=== PATIENT | female | born 1995 | race Caucasian/White ===

== ENCOUNTER 2018-05-11 06:34 | Inpatient (IN) ==
[2018-05-11] MEDS ORDERED: ONDANSETRON 4 MG/2 ML VIAL IV PRN (07:13)
[2018-05-11] MEDS ORDERED: MEPERIDINE 50 MG/1 ML VIAL IM PRN (07:13)
[2018-05-11] MEDS ORDERED: LACTATED RINGERS 500 ML IV ONE (07:14)
[2018-05-11] MEDS ORDERED: PROMETHAZINE 25 MG/1 ML VIAL IM ONE (07:14)
[2018-05-11] MEDS ORDERED: ONDANSETRON 4 MG/2 ML VIAL IV ONE (07:14)
[2018-05-11] MEDS ORDERED: ePHEDrine 50 MG/ML AMP IV PRN (07:14)
[2018-05-11] MEDS ORDERED: diphenhydrAMINE 50 MG/1 ML VIAL IV PRN ×2 (07:14)
[2018-05-11] MEDS ORDERED: LACTATED RINGERS 250 ML IV PRN (07:14)
[2018-05-11] MEDS ORDERED: LACTATED RINGERS 1,000 ML IV ONE (07:14)
[2018-05-11] MEDS ORDERED: FAMOTIDINE 20 MG/2 ML VIAL IV ONE (07:14)
[2018-05-11] MEDS ORDERED: CITRIC ACID/SODIUM CITRATE 30 ML UDCUP PO ONE (07:14)
[2018-05-11] MEDS ORDERED: hydrOXYzine HCL 25 MG/1 ML VIAL IM PRN (07:14)
[2018-05-11 07:50] LABS: Basophils % 0.2 % (0.0-0.8); Eosinophils # 0.1 10*3/uL (0.0-0.87); Eosinophils % 0.5 % (0.00-10.9); Hematocrit 29.9 VOL% (35.7-47.0); Hemoglobin 10.1 GM/DL (12.0-16.0); Immature Granulocytes % 0.8 %; Immature Granulocytes Absolute 0.11 #; Lymphocytes # 2.2 10*3/uL (1.4-4.0); Lymphocytes % 14.8 % (21.3-54.2); Mean Corpuscular HGB Conc 33.8 GM/DL (32-36); Mean Corpuscular Hemoglobin 29 PG (27-34); Mean Corpuscular Volume 85.2 FL (87-102); Mean Platelet Volume 10.4 FL (9.6-12.0); Monocytes # 1.3 10*3/uL (0.11-0.8); Monocytes % 8.6 % (1.7-12.7); Neutrophils # 10.9 10*3/uL (1.4-7.4); Neutrophils % 75.1 % (38.7-73.9); Platelet Count 294 T/CUMM (130-400); Red Blood Count 3.51 MC/CUMM (3.8-5.5); Red Cell Distribution Width 13.1 % (9.3-17.3); White Blood Count 14.6 T/CUMM (4-12)
[2018-05-11] MEDS: LACTATED RINGERS 1,000 ML IV SCH ×4 (07:56→21:43)
[2018-05-11 08:29] LABS: Alanine Aminotransferase 12 U/L (13-56); Albumin 2.6 G/DL (3.4-5.0); Alkaline Phosphatase 162 U/L (45-117); Aspartate Amino Transferase 10 U/L (0-37); Bilirubin,Total < 0.39 MG/DL (0.2-1.0); Blood Urea Nitrogen 7 MG/DL (7-18); Calcium 8.4 MG/DL (8.5-10.1); Glucose 82 MG/DL (74-106); Osmolality,Calculated 271.7 MOS/KG (273-304); Potassium 3.8 MMOL/L (3.5-5.1); Sodium 138 MMOL/L (136-145); Total Protein 6.5 G/DL (6.4-8.3)
[2018-05-11] MEDS: fentaNYL 2 MCG/ROPIV 0.2% EPID 150 ML EPIDURAL SCH ×2 (08:34→12:40)
[2018-05-11 09:08] LABS: Apearance,Urine CLEAR (Clear); Bilirubin,Urine Negative (Negative); Blood, Urine Small mg/dL (Negative); Glucose,Urine (UA) Negative (Negative); Ketones,Urine Negative (Negative); Mucus,Urine Moderate /LPF (Occasional); Nitrite,Urine Negative (Negative); Protein,Urine 30 MG/DL; RBC,Urine 6 /HPF (0-4); Squamous Epithelial Cell,Urine Occasional /HPF (0-10); Urine Color Yellow (Yellow); Urine Specific Gravity 1.018 (1.001-1.035); Urine Urobilinogen < 2.0 EU/DL (0.2-1.0); WBC,Urine 1 /HPF (0-6)
[2018-05-11] MEDS ORDERED: OXYTOCIN/LR 20 UNIT/1,000 ML BAG IV SCH (09:30)
[2018-05-11] MEDS ORDERED: METHYLERGONOVINE 0.2 MG/1 ML AMP ONE (11:59)
[2018-05-11] MEDS ORDERED: miSOPROStol 200 MCG TABLET ONE (11:59)
[2018-05-11] MEDS ORDERED: LIDOCAINE 1% 50 ML VIAL ONE (11:59)
[2018-05-11 14:18] LABS: Cord Venous Blood HCO3 17.5 MMOL/L; Cord Venous Blood PCO2 50.5 MMHG; Cord Venous Blood PO2 22.5
[2018-05-11] MEDS ORDERED: ACETAMINOPHEN 325 MG TABLET PO PRN (17:12)
[2018-05-11] MEDS ORDERED: oxyCODONE/ACETAMINOPHEN 5-325 MG TABLET PO PRN (17:12)
[2018-05-11] MEDS ORDERED: DIPH/TET/ACEL PERT BOOSTER VACCINE 0.5 ML VIAL IM ONE (17:12)
[2018-05-11] MEDS ORDERED: RHO(D) IMMUNE GLOBULIN 300 MCG SYRINGE IM ONE (17:12)
[2018-05-11] MEDS ORDERED: WITCH HAZEL PADS 100/JAR TOP PRN (17:12)
[2018-05-11] MEDS ORDERED: LANOLIN 50% CREAM 0.3 OZ TUBE TOP PRN (17:12)
[2018-05-11] MEDS ORDERED: BENZOCAINE 20%/MENTHOL 0.5% SPRAY 56 GM CAN TOP PRN (17:12)
[2018-05-11] MEDS ORDERED: MEASLES/MUMPS/RUBELLA VACCINE 0.5 ML VIAL SUBCUT ONE (17:12)
[2018-05-11] MEDS ORDERED: HYDROCORTISONE 2.5% RECTAL CREAM 30 GM TUBE TOP PRN (17:12)
[2018-05-11] MEDS ORDERED: BISACODYL 10 MG SUPP RECTAL PRN (17:12)
[2018-05-11] MEDS ORDERED: ACETAMINOPHEN/CODEINE 300-30 MG TABLET PO PRN (17:12)
[2018-05-11] MEDS: IBUPROFEN 800 MG TABLET PO PRN ×2 (17:41→23:24)
[2018-05-11] MEDS: oxyCODONE/ACETAMINOPHEN 5-325 MG TABLET PO PRN ×2 (17:41→23:24)
[2018-05-11] MEDS: DOCUSATE SODIUM 100 MG CAPSULE PO SCH (20:41)
[2018-05-12 06:58] LABS: Basophils % 0.1 % (0.0-0.8); Eosinophils # 0.1 10*3/uL (0.0-0.87); Eosinophils % 0.8 % (0.00-10.9); Hematocrit 26.4 VOL% (35.7-47.0); Hemoglobin 8.7 GM/DL (12.0-16.0); Immature Granulocytes % 0.6 %; Immature Granulocytes Absolute 0.11 #; Lymphocytes # 3.1 10*3/uL (1.4-4.0); Lymphocytes % 17.7 % (21.3-54.2); Mean Corpuscular Hemoglobin 28 PG (27-34); Mean Corpuscular Volume 84.9 FL (87-102); Mean Platelet Volume 11.3 FL (9.6-12.0); Monocytes # 1.4 10*3/uL (0.11-0.8); Monocytes % 8.2 % (1.7-12.7); Neutrophils # 12.7 10*3/uL (1.4-7.4); Neutrophils % 72.6 % (38.7-73.9); Platelet Count 221 T/CUMM (130-400); Red Blood Count 3.11 MC/CUMM (3.8-5.5); Red Cell Distribution Width 13.4 % (9.3-17.3); White Blood Count 17.5 T/CUMM (4-12)
[2018-05-12] MEDS: DOCUSATE SODIUM 100 MG CAPSULE PO SCH ×2 (08:13→22:21)
[2018-05-12] MEDS: IBUPROFEN 800 MG TABLET PO PRN (11:43)
[2018-05-12] MEDS: FERROUS SULFATE 325 MG TABLET PO SCH ×2 (11:43→22:20)
[2018-05-12] MEDS: oxyCODONE/ACETAMINOPHEN 5-325 MG TABLET PO PRN ×2 (13:15→22:25)
[2018-05-13 09:13] VITALS: BP 130/70
[2018-05-13] MEDS: DOCUSATE SODIUM 100 MG CAPSULE PO SCH (09:42)
[2018-05-13] MEDS: FERROUS SULFATE 325 MG TABLET PO SCH (09:42)
== END 2018-05-13 11:45 | disposition home or self-care (01) | DRG 775 ==
LOC: N.LDOUT 06:34 → N.LD 06:43 → N.OB 17:21
PROVIDERS: ADMIT Obstetrics & Gynecology; ATTEND Obstetrics & Gynecology

== ENCOUNTER 2020-04-03 07:30 | Inpatient (IN) ==
[2020-04-03] MEDS ORDERED: MEPERIDINE 50 MG/1 ML VIAL IV PRN (08:02)
[2020-04-03] MEDS ORDERED: ONDANSETRON 4 MG/2 ML VIAL IV PRN (08:02)
[2020-04-03] MEDS ORDERED: BUTORPHANOL 2 MG/ML VIAL IV PRN (08:02)
[2020-04-03 08:28] LABS: Basophils % 0.3 % (0.0-0.8); Eosinophils # 0.1 10*3/uL (0.0-0.87); Eosinophils % 1.1 % (0.00-10.9); Hematocrit 31.2 VOL% (35.7-47.0); Hemoglobin 10.2 GM/DL (12.0-16.0); Immature Granulocytes % 0.3 %; Immature Granulocytes Absolute 0.03 #; Lymphocytes # 2.5 10*3/uL (1.4-4.0); Lymphocytes % 25.7 % (21.3-54.2); Mean Corpuscular HGB Conc 32.7 GM/DL (32-36); Mean Corpuscular Volume 84.1 FL (87-102); Mean Platelet Volume 10.8 FL (9.6-12.0); Monocytes % 9.3 % (1.7-12.7); Neutrophils % 63.3 % (38.7-73.9); Platelet Count 255 T/CUMM (130-400); Red Blood Count 3.71 MC/CUMM (3.8-5.5); Red Cell Distribution Width 14.4 % (9.3-17.3); White Blood Count 9.6 T/CUMM (4-12)
[2020-04-03] MEDS ORDERED: LACTATED RINGERS 1,000 ML IV SCH ×2 (08:30→09:00)
[2020-04-03] MEDS ORDERED: OXYTOCIN/LR 20 UNIT/1,000 ML BAG IV SCH (08:30)
[2020-04-03] MEDS ORDERED: LACTATED RINGERS 250 ML IV PRN (08:43)
[2020-04-03] MEDS ORDERED: NALOXONE 0.4 MG/ML VIAL IV PRN (08:43)
[2020-04-03] MEDS ORDERED: FAMOTIDINE 20 MG/2 ML VIAL IV ONE (08:43)
[2020-04-03] MEDS ORDERED: LACTATED RINGERS 1,000 ML IV ONE (08:43)
[2020-04-03] MEDS ORDERED: diphenhydrAMINE 50 MG/1 ML VIAL IV PRN ×2 (08:43)
[2020-04-03] MEDS ORDERED: ePHEDrine 50 MG/ML VIAL IV PRN (08:43)
[2020-04-03] MEDS ORDERED: CITRIC ACID/SODIUM CITRATE 30 ML UDCUP PO ONE (08:43)
[2020-04-03] MEDS ORDERED: fentaNYL 2 MCG/ROPIV 0.2% EPID 100 ML EPIDURAL SCH (09:00)
[2020-04-03] MEDS ORDERED: LIDOCAINE MPF 2% /EPI 20 ML VIAL ONE (09:46)
[2020-04-03] MEDS ORDERED: fentaNYL 100 MCG/2 ML VIAL ONE (09:46)
[2020-04-03 10:54] LABS: Apearance,Urine CLEAR (Clear); Bilirubin,Urine Negative (Negative); Blood, Urine Small mg/dL (Negative); Glucose,Urine (UA) Negative (Negative); Ketones,Urine Negative (Negative); Mucus,Urine Occasional /LPF (Occasional); Nitrite,Urine Negative (Negative); Protein,Urine Negative; RBC,Urine <1 /HPF (0-4); Urine Color Straw (Yellow); Urine Specific Gravity 1.008 (1.001-1.035); Urine Urobilinogen < 2.0 EU/DL (0.2-1.0); WBC,Urine <1 /HPF (0-6)
[2020-04-03] MEDS ORDERED: miSOPROStoL 200 MCG TABLET ONE (11:43)
[2020-04-03] MEDS ORDERED: METHYLERGONOVINE 0.2 MG/1 ML AMP ONE (12:02)
[2020-04-03 12:12] LABS: Cord Venous Blood HCO3 21.6 MMOL/L; Cord Venous Blood PCO2 37.6 MMHG; Cord Venous Blood PO2 27.9 MMHG
[2020-04-03] MEDS ORDERED: BISACODYL 10 MG SUPP RECTAL PRN (15:00)
[2020-04-03] MEDS ORDERED: RHO(D) IMMUNE GLOBULIN 300 MCG SYRINGE IM ONE (15:00)
[2020-04-03] MEDS ORDERED: LANOLIN 50% CREAM 0.3 OZ TUBE TOP PRN (15:00)
[2020-04-03] MEDS ORDERED: DIPH/TET/ACEL PERT BOOSTER VACCINE 0.5 ML VIAL IM ONE (15:00)
[2020-04-03] MEDS ORDERED: WITCH HAZEL PADS 100/JAR TOP PRN (15:00)
[2020-04-03] MEDS ORDERED: ACETAMINOPHEN 325 MG TABLET PO PRN (15:00)
[2020-04-03] MEDS ORDERED: oxyCODONE/ACETAMINOPHEN 5-325 MG TABLET PO PRN (15:00)
[2020-04-03] MEDS ORDERED: BENZOCAINE 20%/MENTHOL 0.5% SPRAY 56 GM CAN TOP PRN (15:00)
[2020-04-03] MEDS ORDERED: MEASLES/MUMPS/RUBELLA VACCINE 0.5 ML VIAL SUBCUT ONE (15:00)
[2020-04-03] MEDS ORDERED: HYDROCORTISONE 2.5% RECTAL CREAM 30 GM TUBE TOP PRN (15:00)
[2020-04-03] MEDS ORDERED: OXYTOCIN/LR 20 UNIT/1,000 ML BAG IV ONE (15:00)
[2020-04-03] MEDS ORDERED: diphenhydrAMINE CAP 25 MG CAPSULE PO PRN (15:02)
[2020-04-03] MEDS: IBUPROFEN 800 MG TABLET PO PRN (19:35)
[2020-04-03] MEDS: DOCUSATE SODIUM 100 MG CAPSULE PO SCH (20:47)
[2020-04-04 06:24] LABS: Basophils % 0.2 % (0.0-0.8); Eosinophils # 0.1 10*3/uL (0.0-0.87); Eosinophils % 1.2 % (0.00-10.9); Hematocrit 27.6 VOL% (35.7-47.0); Hemoglobin 8.6 GM/DL (12.0-16.0); Immature Granulocytes % 0.5 %; Immature Granulocytes Absolute 0.04 #; Lymphocytes # 1.3 10*3/uL (1.4-4.0); Lymphocytes % 15.4 % (21.3-54.2); Mean Corpuscular HGB Conc 31.2 GM/DL (32-36); Mean Corpuscular Volume 87.1 FL (87-102); Mean Platelet Volume 10.8 FL (9.6-12.0); Monocytes % 10.3 % (1.7-12.7); Neutrophils % 72.4 % (38.7-73.9); Platelet Count 202 T/CUMM (130-400); Red Blood Count 3.17 MC/CUMM (3.8-5.5); Red Cell Distribution Width 14.7 % (9.3-17.3); White Blood Count 8.6 T/CUMM (4-12)
[2020-04-04] MEDS: IBUPROFEN 800 MG TABLET PO PRN ×3 (07:47→22:26)
[2020-04-04] MEDS: oxyCODONE/ACETAMINOPHEN 5-325 MG TABLET PO PRN (07:47)
[2020-04-04] MEDS: DOCUSATE SODIUM 100 MG CAPSULE PO SCH ×2 (08:38→20:36)
[2020-04-04] MEDS: FERROUS SULFATE 325 MG TABLET PO SCH ×2 (08:38→20:36)
[2020-04-04] MEDS: SERTRALINE 50 MG TABLET PO SCH (10:53)
[2020-04-05 07:20] VITALS: BP 123/64
[2020-04-05] MEDS: DOCUSATE SODIUM 100 MG CAPSULE PO SCH (07:58)
[2020-04-05] MEDS: IBUPROFEN 800 MG TABLET PO PRN (07:58)
[2020-04-05] MEDS: oxyCODONE/ACETAMINOPHEN 5-325 MG TABLET PO PRN (07:58)
[2020-04-05] MEDS: SERTRALINE 50 MG TABLET PO SCH (07:58)
[2020-04-05] MEDS: FERROUS SULFATE 325 MG TABLET PO SCH (07:58)
== END 2020-04-05 13:15 | disposition home or self-care (01) | DRG 560 ==
LOC: N.LDOUT 07:30 → N.LD 07:32 → N.OB 14:00
PROVIDERS: ADMIT Obstetrics & Gynecology; ATTEND Obstetrics & Gynecology